=== PATIENT | female | born 1970 | race Caucasian/White ===

== ENCOUNTER 2017-07-16 08:58 | Inpatient (IN) | payer OTHER ==
[~2017-07-16] VITALS: Ht 172.7 cm; Wt 106.2 kg
--- NOTE | ~2017-07-16 | HP ---
Unit #: [id number] #: [id number] Patient: ERIC COURTNEY [id number] [address] [address] [id number] I MR#: [id number] NAME: ERIC COURTNEY. ROOM: 321 Age: 47 Sex: F Admission Date: 07/16/2017 : 1970 Attending Physician: Christopher Ruano M.D. Primary Care Physician: Stephy Knox M.D. HISTORY AND PHYSICAL CHIEF COMPLAINT Shortness of breath. HISTORY OF PRESENT ILLNESS The patient is a 47-year-old female with a history of hepatitis, cirrhosis, and pneumonia in the past who presented to the emergency room complaining of shortness of breath. The patient stated that patient has been having worsening shortness of breath associated with a productive cough that started yesterday. The patient denies any fevers and chills. The patient continues to smoke one pack per day with a history of COPD. The patient has had exposure to a sick grandkid with some kind of viral illness. The patient had a chest x-ray that shows that the patient had interstitial change in both lungs, left greater than the right, with peribronchial cuffing concerning for edema, although infection is possible. The patient is being admitted for the above reasons. PAST MEDICAL HISTORY 1. Hepatitis C. 2. Cirrhosis. 3. Chronic obstructive pulmonary disease. 4. Intracranial hemorrhage. PAST SURGICAL HISTORY 1. Cholecystectomy. 2. section x2. 3. Tubal ligation. HOME MEDICATIONS 1. Vitamins. 2. Amitriptyline. 3. Proventil. 4. Combivent. 5. Breo. 6. Doxepin. 7. Requip. 8. Effexor. 9. Zestril. 10. Singulair. 11. Gabapentin. 12. Risperdal. 13. Advil. SOCIAL HISTORY Positive for smoking one pack per day. (1) alcohol. Denies any Unit #: [id number] #: [id number] Patient: ERIC COURTNEY illicit drug abuse. FAMILY HISTORY Unknown as she is adopted. ALLERGIES Sulfa, codeine, and levofloxacin. REVIEW OF SYSTEMS Positive for shortness of breath, positive for cough, and positive for sick contact exposure. All other systems have been reviewed and are none. PHYSICAL EXAMINATION VITAL SIGNS: Temperature 98.3, pulse 137, respiratory rate 18, blood pressure 135/80, and saturating 93% on room air. HEENT: Head atraumatic, normocephalic. Pupils equal, round, and reactive to light and accommodation. Extraocular movements are intact. NECK: Supple. LUNGS: Decreased air entry at the bases. Positive for rhonchi on the left lower base. HEART: Regular rate and rhythm. ABDOMEN: Soft. Positive bowel sounds. EXTREMITIES: No cyanosis, no clubbing. NEUROLOGIC: Awake and alert. DIAGNOSTIC STUDIES LABORATORY: Lactic acid is 0.9. Sodium 135, potassium 3.4, chloride 101, bicarb 23, glucose 96, BUN 7, creatinine 0.7, AST 16, ALT 14, alkaline phosphatase 112, and albumin 3.5. Lipase 11. Urinalysis shows trace leukocyte esterase, 1+ protein, urine WBCs 5-10, and urine bacteria 4+. INR is 1.1. WBC 18.2, hemoglobin 11.3, hematocrit 33.2, and platelets 247,000. Troponin less than 0.05. IMAGING: Chest x-ray shows there is bibasilar interstitial change in both lungs, left greater than right, with peribronchial cuffing. Findings suggest the presence of edema, although infection is possible. There is no pleural effusion. PLAN Admit the patient to observation with telemetry. Continue IV antibiotics with Rocephin and Zithromax. Continue DuoNebs and replace potassium. Check sputum cultures. Further recommendations will follow as more lab results are available. Dictated by Arianna Lu TD: 07/16/2017 20:01 JOB #: [id number] Unit #: [id number] #: [id number] Patient: ERIC COURTNEY HISTORY AND PHYSICAL Page 1 of 1 X CHRISTOPHER RUANO MD X HISTORY AND PHYSICAL
--- NOTE | ~2017-07-16 | CR63 ---
[facility] A Service of [facility] & [facility] RADIOLOGY TEXT RESULTS PATIENT: ERIC COURTNEY LOCATION: [facility] 321- : [birth year] UNIT #: [id number] AGE: [address]: Jim Sullivan MD SEX: F ORDER DR: [id number] [facility] [address]. [place], [place] [address] [id number] I MR#: [id number] Acc #: [id number] NAME: ERIC COURTNEY. : 1970 SEX: F STUDY DATE/TIME: 07/18/2017 8:44 UNIT: [address] ROOM: [facility] STUDY DESCRIPTION: CR Chest 2 View Attending Physician: Jim Sullivan M.D. Ordering Physician: Jim Sullivan M.D. Primary Care Physician: Stephy Knox M.D. MEDICAL IMAGING REPORT This report is preliminary unless electronic signature is present EXAM Chest, PA and lateral, 07/18/2017. HISTORY Cough, chest congestion and shortness of breath for 2 days. Benign essential hypertension, congestive heart failure. Smoking history for 30 years. FINDINGS Cardiac and mediastinal structures are stable compared with 07/16/2017. There has been an interval decrease in infiltrate at the left lung base. Right lung is clear. No pneumothorax. There are no pleural effusions. IMPRESSION Decrease in infiltrate at the left lung base compared with 07/16/2017. Dictated by... Aaron Cuellar M.D. THIS IS AN ELECTRONICALLY VERIFIED REPORT Aaron Cuellar M.D. at 07/19/2017 7:36 AM ALEENA/ha TD: 07/18/2017 21:23 JOB #: [id number] MEDICAL IMAGING REPORT Page 1 of 1 COPY
--- NOTE | ~2017-07-16 | CR72 ---
[facility] A Service of [facility] & [facility] RADIOLOGY TEXT RESULTS PATIENT: ERIC COURTNEY LOCATION: [facility] 321- : [birth year] UNIT #: [id number] AGE: [address]: CHRISTOPHER RUANO MD SEX: F ORDER DR: [id number] [facility] [address] [place], [place] [address] [id number] MR#: [id number] Acc #: [id number] NAME: ERIC COURTNEY. : 1970 SEX: F STUDY DATE/TIME: 07/16/2017 09:31 UNIT: [address] ROOM: [facility] STUDY DESCRIPTION: CR Chest Single View Portable Attending Physician: Christopher Ruano M.D. Ordering Physician: Kristian Morrissey M.D. Primary Care Physician: Stephy Knox M.D. MEDICAL IMAGING REPORT This report is preliminary unless electronic signature is present EXAM Chest portable 07/16/2017 0931 hours HISTORY 47-year-old woman with history of smoking, COPD, hypertension, complaining of shortness of air with cough since 07/15/2017. History of cirrhosis of the liver. COMPARISON 01/03/2017 FINDINGS Two portable upright chest films are performed to include all of the lungs. The heart size is within normal limits. There is a stable mildly tortuous aorta. The hilar contours are normal. There is interstitial change in both lower lungs, left greater than right, new from the prior exam. There is mild peribronchial cuffing, right greater than left, suggesting some edema. No effusions. IMPRESSION There is bibasilar interstitial change in both lungs, left greater than right with peribronchial cuffing. Findings suggest the presence of edema although infection is possible. There is no pleural effusion. Dictated by... Dorinda Hernandez M.D. THIS IS AN ELECTRONICALLY VERIFIED REPORT Dorinda Hernandez M.D. at 07/16/2017 2:35 PM SMM/markel TD: 07/16/2017 13:42 JOB #: [id number] [facility] A Service of [facility] & [facility] RADIOLOGY TEXT RESULTS PATIENT: ERIC COURTNEY LOCATION: [facility] 321-01 : [birth year] UNIT #: [id number] AGE: [address]: CHRISTOPHER RUANO MD SEX: F ORDER DR: MEDICAL IMAGING REPORT Page 1 of 1 COPY
--- NOTE | ~2017-07-16 | DS ---
Unit #: [id number] #: [id number] Patient: ERIC RICHARDS [id number] [address] [address] [id number] I MR#: [id number] NAME: ERIC RICHARDS. ROOM: 321 Age: 47 Sex: F Admission Date: 07/16/2017 : 1970 Discharge Date: 07/18/2017 Attending Physician: Jim Sullivan M.D. Primary Care Physician: Stephy Knox M.D. DISCHARGE SUMMARY PRIMARY DIAGNOSIS Sepsis. SECONDARY DIAGNOSES 1. Community-acquired pneumonia. 2. Possible urinary tract infection. 3. Acute on chronic hypoxemic respiratory failure. Patient chronically wears two liters of oxygen q.h.s. at home. 4. Acute exacerbation of chronic obstructive pulmonary disease. 5. Anemia, stable. 6. Hypokalemia, improved. 7. Pending echocardiogram to rule out congestive heart failure. HOSPITAL COURSE Ms. Richards was kept in the hospital for two days as she met criteria for sepsis based on tachycardia, tachypnea and leukocytosis at presentation. The patient's imaging on portable x-ray showed bibasilar interstitial changes, left greater than right with peribronchial cuffing suggesting either edema or infection. She was initially admitted. She was started on antibiotics with Rocephin and Zithromax. She did receive a dose of IV steroid in the emergency room but this was not continued until the following day when I examined her and she had expiratory wheezing on my exam when IV steroids were restarted for the next 24 hours. Additionally, based on the chest x-ray, an echocardiogram was ordered to try to rule out pulmonary edema or CHF. That result is still pending. On the day of discharge, the patient's lungs are clear. She has 4+/4 air exchange and she has no wheezing, no rhonchi, no crackles. She was ambulating without any hypoxia. There was a PA and lateral chest x-ray done on the day of discharge as well. The radiology report is still pending but, on my personal read, the infiltrates are essentially unchanged as would be expected with pneumonia. As the patient felt much better, her physical lung exam was also much better and she was very eager to leave the hospital as she felt better. She is going to be discharged with antibiotics and steroids with followup with her primary care provider, Keerthi Laureano at [facility]. She is advised that she will need a repeat chest x-ray as well as followup on the echocardiogram findings. DISCHARGE DISPOSITION To home. DISCHARGE STATUS Stable. Unit #: [id number] #: [id number] Patient: ERIC RICHARDS DISCHARGE DIET A 2,000 mg sodium restricted diet. DISCHARGE ACTIVITY Ad martin. DISCHARGE FOLLOWUP With Keerthi Laureano in one week. DISCHARGE MEDICATIONS 1. Prednisone 60 mg p.o. daily for five days. 2. Omnicef 300 mg p.o. b.i.d. for eight days. 3. Zithromax 500 mg p.o. daily for three additional days. 4. Proventil one vial nebulized q.6 hours p.r.n. shortness of breath. 5. DuoNeb inhaler one puff four times daily. 6. Gabapentin 600 mg p.o. q.i.d. 7. Amitriptyline 100 mg p.o. q.h.s. 8. Doxepin 10 mg p.o. q.i.d. 9. Effexor XR 225 mg p.o. daily. 10. Requip 0.5 mg p.o. q.h.s. 11. Risperdal 1 mg p.o. b.i.d. 12. Breo Ellipta 100/25 mcg inhaler one puff daily. 13. Lisinopril 20 mg p.o. daily. 14. Singulair 10 mg p.o. daily. 15. Advil 800 mg p.o. t.i.d. p.r.n. pain. 16. Vitamin D2 50,000 units p.o. weekly. Dictated by... Jim Sullivan M.D. CONRAD/markel TD: 07/19/2017 11:11 JOB #: [id number] DISCHARGE SUMMARY Page 1 of 1 X Jim Sullivan MD X DISCHARGE SUMMARY
--- NOTE | ~2017-07-16 | EKG ---
PATIENT: ERIC COURTNEY UNIT #: [id number] Ventricular Rate: 133 BPM Atrial Rate: 133 BPM P-R Interval: 168 ms QRS Duration: 86 ms Q-T Interval: 278 ms QTC Calculation(Bezet): 413 ms P Gonzales: 77 degrees Calculated R Gonzales: 77 degrees Calculated T Gonzales: 72 degrees Diagnosis Line: Sinus tachycardia Diagnosis Line: Otherwise normal ECG Diagnosis Line: When compared with ECG of 13-FEB-2015 14:01, Diagnosis Line: No significant change was found Diagnosis Line: Confirmed by YULISA VILLANUEVA MD ([id number]) on Diagnosis Line: 07/16/2017 12:22:51 PM INTERPRETING MD: RADHIKA
[~2017-07-16 08:58] MED LIST: ACETAMINOPHEN650 M1 PO; ADVAIR 1001 DISK W/D PO; ADVAIR 2501 DISK W/D PO; ALBUTEROL 0.5ML INH; ALBUTEROL17 GM INH; AMITRIPTYLINE H50 MG PO; AMITRIPTYLINE HC5 GM MC; CAPMIST DM TAB1 EACH PO; CEFTIN500 MG PO; COMBIVENT INH14.7 GM INH; COMBIVENT U/D3 M1 INH; COMBIVENT14.7 GM; DILANTIN; DOXYCYCLINE HY100 M1 PO; HEART PILL; HUMIBID-LA600 MG PO; IBUPROFEN800 MG PO; LASIX20 MG PO; MEDROL DOSEPAK4 MG DOB; MEDROL PO; NEURONTIN600 MG PO; NICOTINE TRANSD21 MG EXT; OMNICEF300 M1 PO; OMNICEF300 MG PO; PAXIL PO; PREDNISONE PO; PREDNISONE1 MG; PREDNISONE1 MG PO; PREDNISONE50 MG PO; PROZAC PO; PROZAC40 MG PO; REQUIP0.5 MG PO; REQUIP1 MG PO; RESPERIDOL PO; RISPERDAL1 M1 PO; SAPHRIS5 MG SL; SEROQUEL PO; SLEEPING PILL; SYMBICORT80 INH; VANCOMYCIN HCL750 MG; VANCOMYCIN HCL750 MG IV; VIBRAMYCIN100 M1 DOB; WELLBUTRIN PO; ZITHROMAX PO; ZITHROMAX1 G/PKT; ZITHROMAX1 G/PKT PO; [UNRECOGNIZED DRUG - OTHER]
[2017-07-16 10:08] LABS: POC - CKMB 4.7 ng/mL (0.0-7.9); POC - TROPONIN <0.05 ng/mL (<=0.05)
[2017-07-16 10:10] LABS: BASOPHIL# 0.1 X10e3 (0-0.3); BASOPHIL% 0.3 % (0-2.5); DIFF IND YES; EOSINOPHIL# 0.1 X10e3 (0-0.7); EOSINOPHIL% 0.6 % (0.0-7.0); HEMATOCRIT 33.2 % (35.0-45.0); HEMOGLOBIN 11.3 gm/dL (12.0-16.0); LYMPHOCYTE# 0.6 X10e3 (1.0-3.5); LYMPHOCYTE% 3.3 % (17.0-45.0); MEAN CELL VOLUME 88.8 FL (83-96); MEAN CORPUSCULAR HEMOGLOBIN 30.2 PG (28-34); MEAN PLATELET VOLUME 8.3 FL (6.5-11.5); MONOCYTE# 1.6 X10e3 (0-1.0); MONOCYTE% 8.8 % (3.0-12.0); NEUTROPHIL# 15.8 X10e3 (1.5-7.1); PLATELET COUNT 247 X10e3 (140-420); RED BLOOD COUNT 3.74 X10e (3.90-5.30); RED CELL DISTRIBUTION WIDTH 14.7 % (11.0-15.5); WHITE BLOOD COUNT 18.2 X10e3 (4.0-10.5)
[2017-07-16 10:28] LABS: URINE SOURCE CLEAN CATCH
[2017-07-16 10:32] LABS: INR 1.1; PARTIAL THROMBOPLASTIN TIME 29.1 SECONDS (23.5-31.3)
[2017-07-16 10:36] LABS: URINE APPEARANCE CLEAR; URINE BILIRUBIN NEG (NEG); URINE BLOOD NEG (NEG); URINE COLOR YELLOW; URINE GLUCOSE NEG (NEG); URINE KETONE TRACE (NEG); URINE LEUKOCYTE ESTERASE TRACE (NEG); URINE NITRATE NEG (NEG); URINE PROTEIN 1+ (NEG); URINE SPECIFIC GRAVITY 1.013 (1.003-1.035)
[2017-07-16 10:37] LABS: CULTURE INDICATED? YES; URINE BACTERIA AUWI 4+ (NEGATIVE); URINE SQUAMOUS EPITHELIAL CELL FEW /[HPF]
[2017-07-16 10:39] LABS: ANISOCYTOSIS SL; PLATELET ESTIMATE NORMAL (NORMAL)
[2017-07-16 10:54] LABS: ALBUMIN SERUM 3.5 g/dL (3.5-5.0); BILIRUBIN, DIRECT 0.4 mg/dL (0.0-0.2); BILIRUBIN,INDIRECT 0.7 mg/dL (0.0-0.9); BILIRUBIN,TOTAL 1.1 mg/dL (0.2-2.0); CALCIUM SERUM 8.8 mg/dL (8.4-10.2); CREATININE SERUM 0.7 mg/dL (0.6-1.4); GLOM FILT RATE Estimated 102.5 mL/min (>60); POTASSIUM 3.4 mmol/L (3.5-5.1); PROTEIN TOTAL SERUM 7.2 g/dL (6.0-8.3)
[2017-07-16] MEDS ORDERED: PATIENT'S PHARMACY (11:18)
[2017-07-16] MEDS ORDERED: EFFEXOR XR75 MG PO (11:18)
[2017-07-16] MEDS ORDERED: VITAMIN D250000 UNIT PO (11:18)
[2017-07-16] MEDS ORDERED: EFFEXOR XR150 MG PO (11:18)
[2017-07-16] MEDS ORDERED: REQUIP0.5 MG PO (11:18)
[2017-07-16] MEDS ORDERED: DOXEPIN PO (11:18)
[2017-07-16] MEDS ORDERED: BREO ELLIPTA 11 EACH INH (11:19)
[2017-07-16] MEDS ORDERED: COMBIVENT RESPIM4 GM PO (11:19)
[2017-07-16] MEDS ORDERED: ALBUTEROL 0.5ML NEB (11:19)
[2017-07-16] MEDS ORDERED: LISINOPRIL PO (11:19)
[2017-07-16] MEDS ORDERED: AMITRIPTYLINE H50 MG PO (11:19)
[2017-07-16] MEDS ORDERED: IBUPROFEN PO (11:20)
[2017-07-16] MEDS ORDERED: GABAPENTIN600 MG PO (11:20)
[2017-07-16] MEDS ORDERED: SINGULAIR PO (11:20)
[2017-07-16] MEDS ORDERED: RISPERIDONE PO (11:20)
[2017-07-17 06:18] LABS: HEMATOCRIT 30.4 % (35.0-45.0); HEMOGLOBIN 10.2 gm/dL (12.0-16.0); MEAN CELL VOLUME 89.1 FL (83-96); MEAN CORPUSCULAR HEMOGLOBIN 29.9 PG (28-34); MEAN CORPUSCULAR HGB CONC 33.6 g/dL (30-36); MEAN PLATELET VOLUME 8.3 FL (6.5-11.5); RED BLOOD COUNT 3.41 X10e (3.90-5.30); RED CELL DISTRIBUTION WIDTH 14.8 % (11.0-15.5); WHITE BLOOD COUNT 15.5 X10e3 (4.0-10.5)
[2017-07-17 06:46] LABS: CALCIUM SERUM 8.8 mg/dL (8.4-10.2); CREATININE SERUM 0.6 mg/dL (0.6-1.4); GLOM FILT RATE Estimated 107.8 mL/min (>60); POTASSIUM 3.9 mmol/L (3.5-5.1)
[2017-07-18 04:09] LABS: CALCIUM SERUM 8.7 mg/dL (8.4-10.2); CREATININE SERUM 0.6 mg/dL (0.6-1.4); GLOM FILT RATE Estimated 107.8 mL/min (>60); POTASSIUM 4.6 mmol/L (3.5-5.1)
[2017-07-18 04:37] LABS: HEMATOCRIT 31.9 % (35.0-45.0); HEMOGLOBIN 10.7 gm/dL (12.0-16.0); MEAN CELL VOLUME 89.7 FL (83-96); MEAN CORPUSCULAR HEMOGLOBIN 30.1 PG (28-34); MEAN CORPUSCULAR HGB CONC 33.5 g/dL (30-36); RED BLOOD COUNT 3.55 X10e (3.90-5.30); WHITE BLOOD COUNT 15.4 X10e3 (4.0-10.5)
[2017-07-18] MEDS ORDERED: ZITHROMAX500 MG PO (15:02)
[2017-07-18] MEDS ORDERED: PREDNISONE PO (15:02)
[2017-07-18] MEDS ORDERED: OMNICEF300 M1 PO (15:03)
== END 2017-07-18 17:14 | disposition home or self-care (01) | DRG 871 ==
LOC: CED 08:58 → CEDOF 10:55 → C3A PCU 10:55 → CED 10:55 → C3A PCU 10:55 → CEDOF 11:21 → CED 11:21 → C3A PCU 13:15 → CEDOF 13:15 → C3A PCU 07-17 06:40
PROVIDERS: Emergency Medicine; Internal Medicine
PROC: B24BYZZ Ultrasonography of Heart with Aorta using Other Contrast (ICD-10-PCS; principal; 2017-07-18)
DX: A41.9 Sepsis, unspecified organism (principal); J18.9 Pneumonia, unspecified organism; J96.21 Acute and chronic respiratory failure with hypoxia; N39.0 Urinary tract infection, site not specified; J44.0 Chronic obstructive pulmonary disease with (acute) lower respiratory infection; J44.1 Chronic obstructive pulmonary disease with (acute) exacerbation; D64.9 Anemia, unspecified; E87.6 Hypokalemia; K74.60 Unspecified cirrhosis of liver; Z88.2 Allergy status to sulfonamides; B19.20 Unspecified viral hepatitis C without hepatic coma; Z90.49 Acquired absence of other specified parts of digestive tract; Z98.51 Tubal ligation status
CPT/HCPCS: 36415; 71010; 71020; 80048; 80076; 81003; 82553; 82947; 83605; 83690; 84484; 84703; 85025; 85027; 85610; 85730; 87040; 87070; 87086; 87205; 93005; 93306; 94640; 94664; 94760; 96361; 96374; 99291; J0456; J0696; J2543; J2930; J3370